=== PATIENT | male | born 1950 | race Caucasian/White ===

== ENCOUNTER 2021-02-23 14:44 | Emergency (ER) | payer SELFPAY ==
[2021-02-23 15:44] VITALS: BP 126/88; PULSE 110; RESP 18; TEMP 36.9; O2SAT 98; BMI 19.5
--- NOTE | 2021-02-23 16:28 | ED.SKABFB ---
HPI - Skin/Abscess/Foreign Bdy General Chief complaint: Skin/Abscess/Foreign Body Stated complaint: poison akua Time Seen by Provider: 02/23/21 16:20 Source: patient Mode of arrival: ambulatory Limitations: no limitations History of Present Illness HPI narrative: 70 y/o male presenting to the ER with 3 days of painful, oozing, reddened left sided facial rash. [place] and thought it was poison akua. He has been using topical OTC poison akua medications with no relief. He denies fever or chills. No vision changes or pain in his eye. The rash is along his entire left face and he has no other lesions on his body. MD complaint: rash Onset (ago): day(s) (3) Tetanus up to date: yes Location: face Severity: severe Severity scale (1-10): 8 Quality: burning, aching and pruritic Pain Consistency: intermittent Relieving factors: topical medication Exacerbating factors: none Context: none Associated symptoms: denies other symptoms Treatments prior to arrival: OTC topical medication Related Data Previous Rx's Medication Instructions Recorded acyclovir 5 % topical ointment 1 appl TOPICAL 6XD 7 Days #10 g 02/23/21 mupirocin 2 % topical ointment 1 appl TOPICAL BID #22 g 02/23/21 valacyclovir 1 gram tablet 1,000 mg PO Q8H 7 Days #21 tab 02/23/21 Allergies Allergy/AdvReac Type Severity Reaction Status Date / Time No Known Allergies Allergy Unverified 03/27/20 14:53 Review of Systems Constitutional: Constitutional: Denies chills, Denies fever(s) and Denies headache(s) Eyes: Eyes: Denies blurry vision, Denies change in vision, Denies eye discharge, Denies dry eyes, Denies itchy eyes and Denies other visual disturbances ENT: Reports Normal hearing present, Denies dizziness, Denies ear discharge, Denies otalgia, Reports facial pain, Denies headache(s), Denies hearing loss, Reports lip swelling, Denies mouth lesions, Denies nasal discharge, Denies neck pain, Reports nose pain, Denies sore throat and Denies throat swelling Cardiovascular: Cardiovascular: Denies chest pain and Denies dyspnea Respiratory: Respiratory: Denies cough and Denies dyspnea Gastrointestinal: Gastrointestinal: Denies abdominal pain, Denies diarrhea, Denies nausea and Denies vomiting Musculoskeletal: Musculoskeletal: Denies myalgias and Denies neck pain Integumentary/Breasts: Skin/Breast: Reports pruritus, Reports lesions, Reports erythema, Reports rash, Reports skin pain and Reports skin swelling Neurologic: Reports Normal hearing present, Denies dizziness, Denies headache(s) and Denies paresthesias Hematologic/Lymphatic: Hematologic/Lymphatic: Denies easy bleeding and Denies easy bruising Allergic/Immunologic: Allergic/Immunologic: Denies itchy eyes, Reports lip swelling and Denies throat swelling [facility] Past Medical History Attestation statement: The following information was validated with the patient. Medical History No known health problems Social History Social History Advance Directives: No Advance Directives Information Provided: No Physical Exam Vital Signs: Vital Signs: Last Vital Signs Temp 98.4 F 02/23/21 15:44 Pulse 110 H 02/23/21 15:44 Resp 18 02/23/21 15:44 BP 126/88 02/23/21 15:44 Pulse Ox 98 02/23/21 15:44 Body Mass Index 19.5 Const: General: cooperative, comfortable and no acute distress Nutritional Appearance: average body habitus Orientation/consciousness: patient oriented x3 Limitations: no limitations HENMT: Head: Yes normal to inspection, Yes normocephalic and Yes atraumatic Ears: hearing grossly normal bilaterally, external ears normal and TM's normal bilaterally Face and sinus: Yes erythema (yellow crusting lesions on left nose, left upper lips below left nare ), Yes edema and Yes Facial tenderness on exam of face and sinuses Mouth: Normal oral and palatal mucosa present and lip abnormal left upper swelling, lesion and rash Teeth and gingiva: dentition normal and gingiva normal Throat: Yes posterior oropharynx normal, Yes tonsils normal and Yes uvula midline Eyes: Visual Potts: normal visual potts by confrontation Alignment and Position: alignment normal Eyelids: Yes eyelid abnormality (left lower lid with erythema & small crusting lesion) Conjunctivae: conjunctival abnormal left conjunctival injection localized (lateral at 3 o'clock) Pupils: Equal, round and reactive pupils present EOM: EOMs intact bilaterally Neck: Neck: Yes normal visual inspection, Yes no lymphadenopathy and Yes supple Chest: Chest palpation & inspection: normal inspection of the chest and normal palpation of entire chest wall Resp: Effort & Inspection: normal respiratory effort and able to speak in complete sentences Auscultation: clear to auscultation bilaterally Cardio: Rate: tachycardic Rhythm: regular rhythm Heart sounds: S1 normal heart sound present and S2 normal heart sound present Skin: Rashes: rashes noted maculopapular rash left face other Neuro: General: patient oriented x3, gait normal, tone normal and moves all extremities Cranial nerves: Yes CN's II-XII intact bilaterally, Yes Equal, round and reactive pupils present, Yes Bilaterally intact EOM present, Yes Nystagmus not present, Yes Midline tongue present and Yes Normal hearing present Course Course Course Narrative: 70 y/o male presenting with left facial rash - painful, oozing, intermittently itchy. 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 left eye was stained with fluoroscene and there were no dendritic lesions present. Given his facial involvement and lesions noted on his left lower lid, will start both oral and topical antivirals for his eye. He was counseled on importance of compliance and need for follow up. He is stable for discharge. Discharge Plan Discharge Clinical Impression: Herpes zoster Qualifiers: Herpes zoster complications: without complications Qualified Code(s): B02.9 - Zoster without complications Patient Disposition: Home, Self-Care Instructions: Shingles (ED) Additional Instructions: Your rash is due to Shingles. Take the prescribed anti-viral medication as directed for 1 week. Also use the topical acyclovir ointment in your eye every 2 hours while awake. Use the topical mupirocin on the crusting oozing lesions for possible bacterial infection as well. Follow up with your doctor this week. Recommend following up with eye doctor as well - name and number listed below. If you develop new or worsening symptoms call 911 or come back to the ER for further evaluation. Prescriptions: New valacyclovir 1 gram tablet 1,000 mg PO Q8H 7 Days Qty: 21 RF: 0 mupirocin 2 % ointment 1 appl topical BID Qty: 22 RF: 0 acyclovir 5 % ointment 1 appl topical 6XD 7 Days Qty: 10 RF: 0 Referrals: Phu Mendoza MD [Primary Care Provider] - 2 days (facial shingles) Yaron Joya [Physician] - 2 days (facial HSV, possible eye involvement)
[2021-02-23] MEDS: Tetracaine HCl/PF 0.5% Oph Sol 4 ML DROPS 1 DROP EYE-LEFT (16:40)
[2021-02-23] MEDS: Fluorescein Sodium STRIP 1 STRIP EYE-LEFT (16:41)
== END 2021-02-23 17:32 | disposition home or self-care (01) ==
PROVIDERS: Emergency Provider Emergency Medicine; PCP Internal Medicine
DX: B02.9 Zoster without complications (principal)
CPT/HCPCS: 99283